=== PATIENT | female | born 1970 | race Caucasian/White ===

== ENCOUNTER 2018-02-27 08:51 | Observation (INO) ==
[2018-02-27] MEDS ORDERED: Sodium Chlor 0.9% Inj 500 ML IV.CONT ONE (09:30)
[2018-02-27] MEDS ORDERED: Chlorhexidine Gluconate 2% 1 Pack (2 Cloths) TOPICAL ONE (09:30)
[2018-02-27] MEDS ORDERED: ceFAZolin 2 GM IV; once IV.SIG SCH (09:30)
[2018-02-27] MEDS ORDERED: Metoprolol Tartrate 25 MG Tablet PO ONE (09:30)
[2018-02-27 10:25] LABS: Baso % (Auto) 0.4 % (0.0-2.0); Eos # (Auto) 0.1 th/mm3 (0.0-0.4); Eos % (Auto) 1.1 % (0.0-4.0); Hematocrit 38.1 % (35.0-46.0); Hemoglobin 13.1 gm/dL (11.6-15.3); Lymph # (Auto) 1.4 th/mm3 (1.0-4.8); Lymph % (Auto) 21.2 % (9.0-44.0); Mean Corpuscular HGB Conc 34.4 % (32.0-36.0); Mean Corpuscular Hemoglobin 30.3 pg (27.0-34.0); Mono # (Auto) 0.4 th/mm3 (0.0-0.9); Mono % (Auto) 5.3 % (0.0-8.0); Neut # (Auto) 4.9 th/mm3 (1.8-7.7); Platelet Count 251 th/mm3 (150-450); Red Blood Count 4.33 mil/mm3 (4.00-5.30); Red Cell Distribution Width 13.3 % (11.6-17.2); White Blood Count 6.8 th/mm3 (4.0-11.0)
[2018-02-27] MEDS ORDERED: Lidocaine 1%/Epinephrine 1:100,000 Inj 30 ML Vial ONE (10:30)
[2018-02-27] MEDS ORDERED: fentaNYL Citrate Inj 250 MCG/5 ML Ampul ONE (11:03)
--- NOTE | 2018-02-27 13:07 | P.OP ---
- Preoperative Diagnosis (1) Excessive menstruation (2) Fibroids, intramural - Postoperative Diagnosis (1) Excessive menstruation (2) Fibroids, intramural Date of procedure: 02/27/18 Procedure: LAVH bilateral salpingectomy and umbilical hernia repair Surgeon: Diego Molina MD Obedience Trainer: Leidy Macedo Estimated blood loss (mL): 250 Pathology: other (uterus cervix and bilateral tubes) Operation and Findings: Patient was taken to the operating room and identified by name band and verbally. She received a general anesthetic and she was prepped and draped in the usual sterile manner for a laparoscopic hysterectomy. A Bennett catheter was inserted. A time out was taken and an exam under anesthesia was carried out with the above findings. A speculum was placed in the vagina and the anterior lip of the cervix was grasped with a single-tooth tenaculum. A Hulka clamp was placed and attention was turned to the umbilical area a small subumbilical incision was made and using a 5 mm trocar the abdomen was entered under direct vision and a pneumoperitoneum was created with 3 L of CO2. Inferior lateral to the umbilicus bilaterally 2 more 5 mm trochar were placed under direct vision. Beginning with the round ligaments they were taken down with a harmonic scalpel. The fimbriated ends of the fallopian tube was then grasped and the mesosalpinx was taken down the entire length of the fallopian tubes. The broad ligament was then taken down with the harmonic scalpel to the level of the internal cervical os. The uterine vessels were skeletonized. The bladder flap was now more fully developed and the bladder was pushed out of harm's way. The uterine vessels were then taken at the level of the internal cervical os with the harmonic scalpel. The cardinal ligament was then taken down with the harmonic scalpel staying very close to the cervix until the vaginal apex was obtained. At this point we went below and put a weighted speculum into the vagina removed the Hulka clamp and make a circumferential incision around the cervix the uterus and tubes were then delivered through the vagina without difficulty. The vaginal cuff was then repaired with 0 Vicryl pop offs is in interrupted fashion with good results. Hemostasis was excellent. A sponge stick was placed in the vagina and we returned to the laparoscopic portion. All pedicles were inspected and were dry the pelvis was cleaned of blood and debris with the suction pickle cutter the laparoscope was then removed under direct vision the pneumoperitoneum was released through the second and third punctures and those trochar were removed. THe sac of umbilical hernia pulled up throught 15 mm infraumbilical incision. Fat and peritoenum were removed and the facial defect and trocar site closed at fascia with 2-0 vicryl x2 stiches. The abdominal incisions were then repaired with 4-0 Monocryl in a subcuticular manner. Patient tolerated the procedure well and went to the recovery room in satisfactory condition.
[2018-02-27] MEDS ORDERED: *morphine SULFATE 4 MG/ML PERIprocedure ONLY ONE (13:41)
[2018-02-27] MEDS ORDERED: *Meperidine Inj 25 MG/ML Vial PERIprocedural Use ONLY ONE (13:57)
[2018-02-27] MEDS: Ketorolac Inj 30 MG/ML (IVP) Vial IV.PUSH PRN ×2 (17:44→23:46)
[2018-02-28] MEDS: Ketorolac Inj 30 MG/ML (IVP) Vial IV.PUSH PRN ×2 (05:33→11:43)
[2018-02-28 08:52] VITALS: TEMP 98.8
--- NOTE | 2018-02-28 09:23 | P.PNOB ---
Subjective Post op day: 1 Interval history: doing well for DC home when voiding and ambulating and tolerating diet Objective Vital Signs/I&O: Vital Signs 02/27/18 10:23 02/27/18 13:05 02/27/18 13:15 Temperature 99.2 F 98.3 F Pulse Rate 89 80 83 Respiratory Rate 20 18 15 Blood Pressure 124/82 101/55 L 90/53 L Pulse Oximetry 99 99 98 02/27/18 13:30 02/27/18 13:45 02/27/18 14:00 Temperature Pulse Rate 78 75 71 Respiratory Rate 15 16 16 Blood Pressure 97/57 L 102/59 L 105/60 Pulse Oximetry 100 95 96 02/27/18 14:15 02/27/18 14:30 02/27/18 14:35 Temperature 97.6 F Pulse Rate 70 68 Respiratory Rate 16 16 Blood Pressure 102/60 109/58 L Pulse Oximetry 97 97 96 02/27/18 14:50 02/27/18 16:00 02/27/18 19:58 Temperature 98.2 F 98.0 F 98.2 F Pulse Rate 93 H 100 H 108 H Respiratory Rate 16 18 18 Blood Pressure 108/64 121/63 123/68 Pulse Oximetry 93 L 02/27/18 21:47 02/27/18 23:45 02/28/18 00:10 Temperature 98.3 F Pulse Rate 95 H 101 H Respiratory Rate 16 18 18 Blood Pressure 106/58 L Pulse Oximetry 96 94 L 02/28/18 00:55 02/28/18 02:30 02/28/18 03:59 Temperature 99.4 F Pulse Rate 86 Respiratory Rate 16 16 18 Blood Pressure 118/68 Pulse Oximetry 95 02/28/18 06:30 02/28/18 08:51 Temperature 98.8 F Pulse Rate 91 H Respiratory Rate 16 18 Blood Pressure 120/69 Pulse Oximetry 100 Intake & Output 02/27/18 02/28/18 02/28/18 18:59 06:59 18:59 Intake Total 1550 / 1550 1999 / 1999 Output Total 1225 / 1225 2150 / 2150 Balance 325 / 325 -150 / -150 Weight 69.3 kg Intake: IV 50 / 50 1999 / 1999 LR 1000 mL Inj 1,000 ML @ 125 1999 / 1999 mls/hr IV.CONT .Q8H COUNTS INCLUDE 234 BEDS AT THE [facility] Rx#: [id number] Ancef 2 GM Premix Inj 2 gm In 50 / 50 50 ml @ 100 mls/hr IV.SIG WINDOW GLASS INSTALLER COUNTS INCLUDE 234 BEDS AT THE [facility] Rx#:[id number] Anesthesia Amount 1500 / 1500 Output: Estimated Blood Loss 250 / 250 Urine Amount (Catheter) 975 / 975 2149 / 0 Indwelling Urethral Catheter 975 / 975 2149 / 2149 Other: Weight On Admission 69.3 kg Result Diagrams: 02/27/18 09:55 Objective Remarks: GENERAL: Well-nourished, well-developed patient. ABDOMEN/GI: Abdomen soft, non-tender, bowel sounds present. Incision: Clean, dry and intact. Fundus: Firm, non-tender at umbilicus. GENITOURINARY: Light to moderate bleeding. EXTREMITIES: No cyanosis or edema, non-tender, without signs of DVT. Medications and IVs: Active Medications Lactated Ringer's (Lr 1000 Ml Inj) 1,000 mls @ 30 mls/hr IV.CONT .Q24H ONE Stop: 02/28/18 09:29 Cefazolin Sodium/Dextrose (Ancef 2 Gm Premix Inj) 2 gm in 50 mls @ 100 mls/hr IV.SIG WINDOW GLASS INSTALLER COUNTS INCLUDE 234 BEDS AT THE [facility] Stop: 03/02/18 09:29 Last Infusion: 02/27/18 11:40 Dose: Infused Lactated Ringer's (Lr 1000 Ml Inj) 1,000 mls @ 125 mls/hr IV.CONT .Q8H COUNTS INCLUDE 234 BEDS AT THE [facility] Last Admin: 02/28/18 05:34 Dose: 125 mls/hr Ketorolac Tromethamine (Toradol Inj) 30 mg IV.PUSH Q6H PRN PRN Reason: PAIN SCALE 1 TO 5 Stop: 03/04/18 12:59 Last Admin: 02/28/18 05:33 Dose: 30 mg Miscellaneous Information (Misc Nursing Information) 0 each OTHER UNSCH PRN PRN Reason: SEE LABEL COMMENTS Stop: 02/28/18 13:05 Ondansetron HCl (Zofran Inj) 4 mg IV.PUSH Q6H PRN PRN Reason: NAUSEA OR VOMITING Last Admin: 02/27/18 14:52 Dose: 4 mg Oxycodone/Acetaminophen (Percocet 5/325 Mg) 2 tab PO Q4H PRN PRN Reason: PAIN SCALE 6 TO 10 Sodium Chloride (Ns Flush) 2 ml IV.FLUSH BID AUBRIE Last Admin: 02/27/18 21:45 Dose: Not Given Sodium Chloride (Ns Flush) 2 ml IV.FLUSH PRN PRN PRN Reason: FLUSH AFTER USING IV ACCESS Last Admin: 02/28/18 05:34 Dose: 2 ml Assessment and Plan - Diagnosis (1) Fibroids, intramural Code(s): D25.1 - Intramural leiomyoma of uterus Status: Acute
[2018-02-28 13:19] VITALS: BP 124/77; PULSE 86; RESP 20; O2SAT 95
== END 2018-02-28 13:03 | disposition home or self-care (01) ==
LOC: HSDC 08:51 → HSDI 08:51 → H1EA 14:48
PROVIDERS: ADMIT Obstetrics & Gynecology; ATTEND Obstetrics & Gynecology